=== PATIENT | female | born 1935 | race Caucasian/White ===

== ENCOUNTER 2016-10-24 07:04 | Inpatient (IN) | payer MEDICARE ==
[~2016-10-24] VITALS: Ht 165.1 cm; Wt 88.0 kg
--- NOTE | 2016-10-24 07:05 | NUR ---
81 YO FEMALE BB RA 88 FROM HOME. PT IS ALERT X 3, C/O LEFT SIDED CHEST PAIN X 30 MIN. PT ASSISTED TO ER BED BY EMS. PT GOWNED, PLACED ON MANDARIN TEACHER. SKIN WARM AND DRY, RR EVEN AND UNLABORED. AWAITING ORDERS FROM PROVIDER
--- NOTE | 2016-10-24 07:08 | NUR ---
BORIS PERERA MD AT BED SIDE FOR EVAL
--- NOTE | 2016-10-24 07:15 | NUR ---
PT'S AT BEDSIDE
[2016-10-24] MEDS ORDERED: ASPIRIN 81 MG TAB.CHEW ONE (07:23)
[2016-10-24] MEDS ORDERED: MORPHINE SULFATE INJ 4 MG/ML DISP.SYRIN ONE (07:24)
[2016-10-24] MEDS ORDERED: AMLODIPINE BESYLATE 5 MG TABLET ONE (07:24)
[2016-10-24] MEDS ORDERED: AMLODIPINE BESYLATE 5 MG TABLET PO ONE (07:30)
[2016-10-24] MEDS ORDERED: MORPHINE SULFATE INJ 2 MG/ML DISP.SYRIN IV ONE (07:30)
[2016-10-24] MEDS ORDERED: ASPIRIN 81 MG TAB.CHEW PO ONE (07:30)
--- NOTE | 2016-10-24 07:34 | NUR ---
[employer] VICE PRESIDENT A [facility] FOR BLOOD DRAW
--- NOTE | 2016-10-24 07:37 | NUR ---
MEDICATED PT ORDERED. WILL CONT TO MONITOR
[2016-10-24 07:40] LABS: BASOPHILS # (AUTO) 0.1 /CMM (0.0-0.2); BASOPHILS % (AUTO) 0.7 % (0.0-2.0); EOSINOPHILS # (AUTO) 0.2 /CMM (0.0-0.7); EOSINOPHILS % (AUTO) 2.2 % (0.0-6.0); HEMATOCRIT 47 % (33-45); HEMOGLOBIN 15.9 g/dL (11.5-14.8); LYMPHOCYTES # (AUTO) 3.7 /CMM (0.8-4.8); LYMPHOCYTES % (AUTO) 33.9 % (20.0-44.0); MEAN CORPUSCULAR HEMOGLOBIN 31 PG (26.0-33.0); MEAN CORPUSCULAR HGB CONC 34 g/dl (31.0-36.0); MEAN CORPUSCULAR VOLUME 91 fL (82-100); MONOCYTES # (AUTO) 0.7 /CMM (0.1-1.30); MONOCYTES % (AUTO) 6.3 % (2.0-12.0); NEUTROPHILS # (AUTO) 6.2 /CMM (1.8-8.9); NEUTROPHILS % (AUTO) 56.9 % (43.0-81.0); PLATELET COUNT (AUTO) 275 /CMM (150-450); RDW COEFFICIENT OF VARIATION 14.2 (11.5-15.0); RED BLOOD CELL COUNT(AUTO) 5.19 MIL/uL (4.0-5.2); WHITE BLOOD COUNT (AUTO) 10.8 K/uL (4.3-11.0)
--- NOTE | 2016-10-24 07:41 | NUR ---
METAL HANGING SUPERVISOR AT BEDSIDE
[2016-10-24 07:49] LABS: CALCIUM, SERUM 8.8 mg/dL (8.5-10.1); CARBON DIOXIDE 29 mmol/L (21-32); CHLORIDE 105 mmol/L (98-107); CREATININE 0.7 mg/dL (0.6-1.3); GLUCOSE 176 mg/dL (74-106); POTASSIUM 4.1 mmol/L (3.5-5.1); SODIUM SERUM 140 mmol/L (136-145); UREA NITROGEN, BLOOD 15 mg/dL (7-18)
[2016-10-24] MEDS ORDERED: IV NS 0.9% 500 ML IV ONE (07:54)
[2016-10-24 07:56] LABS: INR 0.96 (0.87-1.13); PROTHROMBIN TIME 10.2 SECS (9.5-12.7)
[2016-10-24 07:58] LABS: TROPONIN I < 0.017 ng/mL (0.00-0.056)
[2016-10-24] MEDS ORDERED: IV NS 0.9% 500 ML BAG IV ONE (08:00)
--- NOTE | 2016-10-24 08:36 | NUR ---
PT WAS TAKENT TO CT
[2016-10-24] MEDS ORDERED: IV NS 0.9% 250 ML IV ONE (08:41)
[2016-10-24] MEDS ORDERED: IOHEXOL-350 100 ML VIAL IV ONE (08:41)
[2016-10-24] MEDS ORDERED: CT SWABBABLE VALVE TRANS SET 1 EA INFUS.SET MC ONE (08:41)
[2016-10-24] MEDS ORDERED: NADO20TA12 PO (09:25)
[2016-10-24] MEDS ORDERED: METF500T4 PO (09:25)
[2016-10-24] MEDS ORDERED: GABA-532 PO (09:25)
[2016-10-24] MEDS ORDERED: ASPI81TA2 PO (09:25)
[2016-10-24] MEDS ORDERED: AMLO10TA2 PO (09:25)
--- NOTE | 2016-10-24 09:50 | NUR ---
PAGED DR CHERYL MAR
[2016-10-24 10:09] LABS: APPEARANCE,URINE Clear (CLEAR); BILIRUBIN,URINE Negative (NEGATIVE); BLOOD, URINE Negative Ery/uL (NEGATIVE); COLOR,URINE Yellow (YELLOW); KETONES,URINE Negative (NEGATIVE); LEUKOCYTE ESTERASE ,URINE Small (NEGATIVE); NITRITE, URINE Negative (NEGATIVE); PH,URINE 5.5 (5.0-8.0); PROTEIN,URINE Negative (NEGATIVE); UGLUCOSE Negative (NEGATIVE); UROBILINOGEN,URINE 0.2 EU/dL (0.2)
--- NOTE | 2016-10-24 10:18 | NUR ---
REPORT GIVEN TO NURSE REBOLLAR FOR CONTINUITY OF CARE
[2016-10-24 10:22] LABS: BACTERIA,URINE Moderate /HPF (None Seen); RBC,URINE 0-2 /HPF (0-2); SQUAMOUS EPITHELIAL CELL,UR Few /HPF (None Seen)
--- NOTE | 2016-10-24 10:51 | NUR ---
PATIENT TRANSPORTED TO [address] [place] [id number]
--- NOTE | 2016-10-24 10:52 | NUR ---
ADULT BASIC STUDIES TEACHER NOTES RECEIVED PATIENT FROM ER VIA GURNEY. PATIENT AWAKE, ALERT AND ORIENTED X4. ON BEDSIDE. NO ACUTE DISTRESS, NO SOB NOTED. DENIES ANY PAIN OR DISCOMFORT. IV SITE INTACT AND PATENT. PROVIDED A SAFE ENVIRONMENT. BED IN LOWEST POSITION, SIDERAILS UP X2. CALL LIGHT WITHIN REACH. WILL CONTINUE TO MONITOR ACCORDINGLY.
[2016-10-24 10:55] VITALS: BP 142/68
[2016-10-24 12:00] VITALS: BP 148/60
[2016-10-24] MEDS ORDERED: ACETAMINOPHEN 325 MG TABLET PO PRN (12:00)
[2016-10-24] MEDS ORDERED: METFORMIN 500 MG TABLET PO SCH (12:00)
[2016-10-24] MEDS ORDERED: ZOLPIDEM TARTRATE 5 MG TABLET PO PRN (12:00)
[2016-10-24] MEDS ORDERED: MAG HYDROX/AL HYDROX/SIMETH 30 ML UDC PO PRN (12:00)
[2016-10-24] MEDS ORDERED: HYDROCODONE/APAP 5/325MG 1 EACH TABLET PO PRN (12:00)
[2016-10-24] MEDS ORDERED: MORPHINE SULFATE INJ 2 MG/ML DISP.SYRIN IV PRN (12:00)
[2016-10-24] MEDS ORDERED: MAGNESIUM HYDROXIDE 30 ML UDC PO PRN (12:00)
[2016-10-24] MEDS ORDERED: Z GUARD REMEDY 2 OZ OINT TP PRN (12:00)
[2016-10-24] MEDS ORDERED: ONDANSETRON HCL/PF 4 MG/2 ML VIAL IVP PRN (12:00)
[2016-10-24] MEDS ORDERED: NITROGLYCERIN 0.4 MG/TAB BOTTLE SL PRN (12:00)
[2016-10-24] MEDS ORDERED: AMLODIPINE BESYLATE 10 MG TABLET PO SCH (12:00)
[2016-10-24] MEDS ORDERED: VALSARTAN 80 MG TABLET PO SCH (12:30)
[2016-10-24] MEDS ORDERED: ATORVASTATIN 40 MG TABLET PO SCH (12:30)
[2016-10-24 15:30] VITALS: BP 137/80
--- NOTE | 2016-10-24 15:40 | NUR ---
RN NOTES DISCHARGE PATIENT IN STABLE CONDITION ACCOMPANIED BY MIS GAMBOA. SKIN INTACT. DISCHARGE TEACHING AND EXITCARE DONE. DISCHARGE PAPERWORK GIVEN.
[2016-10-24] MEDS ORDERED: GABAPENTIN 100 MG CAPSULE PO SCH (22:00)
[2016-10-24] MEDS ORDERED: NADOLOL 40 MG TABLET PO SCH (22:00)
[2016-10-25] MEDS ORDERED: PANTOPRAZOLE 40 MG TABLET.DR PO SCH (07:30)
[2016-10-25] MEDS ORDERED: ASPIRIN 81 MG TAB.CHEW PO SCH (09:00)
== END 2016-10-24 15:30 | disposition home or self-care (01) | DRG 880 ==
LOC: ER 07:05 → TELE 09:55
DX: F41.9 Anxiety disorder, unspecified (principal); E11.9 Type 2 diabetes mellitus without complications; E66.9 Obesity, unspecified; E78.5 Hyperlipidemia, unspecified; I10 Essential (primary) hypertension; G31.84 Mild cognitive impairment of uncertain or unknown etiology; Z68.32 Body mass index [BMI] 32.0-32.9, adult
CPT/HCPCS: 36415; 71010-TC; 80048-TC; 81000-TC; 84484-TC; 85025-TC; 85378-TC; 85730-TC; 87081-TC; 87086-TC; A4606; J2270; J7040; J7050; Q9967; Z7610